=== PATIENT | female | born 1985 | race Hispanic/Latino ===

== ENCOUNTER 2022-08-22 12:40 | Emergency (ER) | payer OTHER ==
[~2022-08-22] VITALS: Ht 162.6 cm; Wt 70.3 kg
[2022-08-22] MEDS ORDERED: KETOROLAC 30MG VIAL (30MG/ML) IM ONE (15:00)
[2022-08-22 15:03] LABS: BASOPHILS % (AUTO) 0.7 % (0.0-5.0); EOSINOPHILS % (AUTO) 0.9 % (0.0-8.0); HEMATOCRIT 36.7 % (36-48); LYMPHOCYTES % (AUTO) 30.8 % (21.0-51.0); MEAN CORPUSCULAR HEMOGLOBIN 25.1 pg (27.0-33.0); MEAN CORPUSCULAR HGB CONC 30.2 g/dL (32.0-36.0); MEAN CORPUSCULAR VOLUME 82.8 fL (79-99); MONOCYTES % (AUTO) 11.4 % (3.0-13.0); PLATELET COUNT (AUTO) 233 K/uL (130-400); RED BLOOD CELL COUNT(AUTO) 4.43 MIL/uL (4.00-5.50); RED CELL DISTRIBUTION WIDTH 17.1 % (11.0-15.5); WHITE BLOOD COUNT (AUTO) 4.3 K/uL (4.8-10.8)
[2022-08-22 15:13] LABS: APPEARANCE,URINE CLEAR (CLEAR); BILIRUBIN,URINE NEGATIVE (NEGATIVE); COLOR,URINE COLORLESS (YELLOW); GLUCOSE, URINE (UA) NEGATIVE (NEGATIVE); KETONES,URINE NEGATIVE (NEGATIVE); LEUKOCYTE ESTERASE ,URINE NEGATIVE Leu/uL (NEGATIVE); NITRATE,URINE NEGATIVE (NEGATIVE); OCCULT BLOOD,URINE NEGATIVE (NEGATIVE); PROTEIN,URINE NEGATIVE (NEGATIVE); UROBILINOGEN,URINE 0.2 mg/dL (0.2-1.0)
[2022-08-22 15:13] LABS: CREATININE 0.8 mg/dL (0.5-1.5); POTASSIUM 3.8 mmol/L (3.5-5.1)
[2022-08-22 15:17] LABS: ALBUMIN 3.6 g/dL (3.5-5.0); TOTAL PROTEIN, SERUM 7.6 g/dL (6.0-8.3)
[2022-08-22 15:18] LABS: HCG,QUALITATIVE URINE NEGATIVE (NEGATIVE)
[2022-08-22 15:19] LABS: RBC,URINE 0-1 /HPF (0-1); SQUAMOUS EPITHELIAL CELL,UR RARE /HPF (0-2); WBC,URINE 0-1 /HPF (0-1)
[2022-08-22] MEDS ORDERED: NAPR500T6 PO (15:50)
[2022-08-22] MEDS ORDERED: SULF1TAB42 PO (15:50)
[2022-08-22 15:57] VITALS: BP 124/72
[2022-08-22] MEDS ORDERED: SULFAMETHOX-TMP DS 800/160 TAB PO SCH (16:00)
== END 2022-08-22 16:00 | disposition home or self-care (01) ==
LOC: EDH 12:40
DX: D36.9 Benign neoplasm, unspecified site (principal); Z90.49 Acquired absence of other specified parts of digestive tract
CPT/HCPCS: 99285; 80053; 85025; 81001; 81025; 36415; 76536; 96372; J1885

== ENCOUNTER 2024-07-13 23:30 | Emergency (ER) | payer OTHER ==
[~2024-07-13] VITALS: Ht 162.6 cm; Wt 80.7 kg
[~2024-07-13 23:30] MED LIST: NAPR-1506 PO; SULF1TAB42 PO
--- NOTE | 2024-07-13 23:48 | ERN ---
ED Note History of Present Illness Stated Complaint: ABD BLOATING, POST SURGICAL Chief Complaint: Post-Op Problem Time Seen by MD: 23:42 Dictation: A 39-year-old female. She comes in the ED. Because some days ago she went to [facility] for a tummy tuck belly procedure surgery to remove some belly fat. Since then she has had some belly pain. And she was draining of the bowl. Went to PCP got night antibiotic shot Allergies: Coded Allergies: No Known Drug Allergies (Unverified Allergy, Unknown, 08/22/22) Home Meds Active Scripts Naproxen (Naproxen) 500 Mg Tablet.dr, 500 MG PO BIDPC, #14 TAB Prov:FITTINGBARBER RADIOTELEGRAPHER 08/22/22 Sulfamethoxazole/Trimethoprim (Bactrim Ds Tablet) 1 Each Tablet, 1 TAB PO BID for 7 Days, #14 TAB 0 Refills Prov:FITTING,BARBER RADIOTELEGRAPHER 08/22/22 Past Medical History Past Medical History: No Pertinent History Surgical History: Appendectomy Review of System Dictation Constitutional: Negative for fever,chills, and weight loss Eyes: Negative for injury, pain,redness, and discharge ENT: Negative for injury,pain or swelling Cardiovascular: Negative for chest pain, palpitations, and edema Respiratory: Negative for shortness of breath, cough, and wheezing, Abdomen/GI: Abdominal pain Back: Negative for injury and pain : Negative for injury, bleeding and discharge MS/Extremity: Negative for injury and deformity Skin: Redness and some swelling. At the suture sites. Neuro: Negative for headache, weakness, numbness, tingling, and seizure Psych: Negative for suicide ideation, homicidal ideation, and hallucinations Initial Vital Sign VS Vital Signs Date Time Temp Pulse Resp B/P (MAP) Pulse Ox O2 Delivery O2 Flow Rate FiO2 07/13/24 23:32 97.3 75 16 106/43 100 Room Air 07/14/24 02:54 0 21 Physical Exam Dictation Patient has no acute distress nontoxic appearing. He has a wheeled in. By the boyfriend. General: awake, alert, NAD Head/Face: Normocephalic, atraumatic Eyes: PERRL, EOMI, vision at baseline ENT: oral cavity clear, TMs clear, no signs of infection Neck: Trachea midline, supple, no nuchal rigidity Cardiovascular: RRR, normal S1/S2, No MRGs, no JVD Respiratory: CTAB, no respiratory distress, No rales or wheezes Abdomen: Soft, non-tender, non-distended, normal bowel sounds, no guarding or rebound. Patient deferred examination was the sutures. Because she said she had the the abdominal binder on this. She did show the bowl. There is no pus or purulent serosanguineous fluid out of this Skin: Warm, dry, normal turgor, no rash MS/Extremity: Pulses equal, no cyanosis, neurovascular intact, FROM Neuro: COAx4, GCS 15, strength 5/5, CN 2-12 intact, normal cerebellar exam, normal gait, Psych: Normal behavior, mood, and affect normal Results (Laboratory/Radiology) Laboratory/Radiology Laboratory Tests Test 07/14/24 00:48 07/14/24 01:31 Urine Color LIGHT-YELLOW (YELLOW) Urine Appearance CLEAR (CLEAR) Urine pH 6.5 (5.0-8.0) Urine Specific [place] 1.017 (1.001-1.031) Urine Protein NEGATIVE mg/dL (NEGATIVE) Urine Glucose (UA) NEGATIVE mg/dL (NEGATIVE) Urine Ketones NEGATIVE mg/dL (NEGATIVE) Urine Occult Blood NEGATIVE (NEGATIVE) Urine Nitrate NEGATIVE (NEGATIVE) Urine Bilirubin NEGATIVE mg/dL (NEGATIVE) Urine Urobilinogen 0.2 mg/dL (0.2-1.0) Urine Leukocyte Esterase NEGATIVE Alisha/uL Urine HCG, Qualitative NEGATIVE (NEGATIVE) White Blood Count 8.5 K/uL (4.8-10.8) Red Blood Count 3.57 MIL/uL (4.00-5.50) L Hemoglobin 10.3 g/dL (12.0-16.0) L Hematocrit 31.9 % (36-48) L Mean Corpuscular Volume 89.4 fL (79-99) Mean Corpuscular Hemoglobin 28.9 pg (27.0-33.0) Mean Corpuscular Hemoglobin Concent 32.3 g/dL (32.0-36.0) Red Cell Distribution Width 15.4 % (11.0-15.5) Platelet Count 363 K/uL (130-400) Mean Platelet Volume 10.6 fL (7.5-10.5) H Immature Granulocyte % (Auto) 0.7 % (0-1) Neutrophils (%) (Auto) 70.4 % (40.0-77.0) Lymphocytes (%) (Auto) 17.9 % (21.0-51.0) L Monocytes (%) (Auto) 8.5 % (3.0-13.0) Eosinophils (%) (Auto) 1.9 % (0.0-8.0) Basophils (%) (Auto) 0.6 % (0.0-5.0) Neutrophils # (Auto) 6.0 K/uL (1.8-7.7) Lymphocytes # (Auto) 1.5 K/uL (1.0-4.8) Monocytes # (Auto) 0.7 K/uL (0.1-1.0) Eosinophils # (Auto) 0.16 K/uL (0.00-0.70) Basophils # (Auto) 0.05 K/uL (0.00-0.20) Absolute Immature Granulocyte (auto 0.06 K/uL (0-1) Nucleated Red Blood Cells 0.0 % (0.0-0.19) Sodium Level 142 mmol/L (136-145) Potassium Level 3.9 mmol/L (3.5-5.1) Chloride Level 104 mmol/L (101-111) Carbon Dioxide Level 32 mmol/L (21-32) Blood Urea Nitrogen 17 mg/dL (7-18) Creatinine 0.9 mg/dL (0.5-1.0) Glomerular Filtration Rate Calc 83 mL/min (>90) Random Glucose 93 mg/dL (70-105) Lactic Acid Level 1.0 mmol/L (0.8-2.5) Total Calcium 8.8 mg/dL (8.5-10.1) Troponin I High Sensitivity < 4 ng/L (4-50) L B-Type Natriuretic Peptide 25 pg/mL (0-100) ED Course ED Course Orders Procedure Category Date Status Time 12 Lead Ekg Tracing- EKG 07/13/24 Logged Technical 23:35 Chest 1vw RAD 07/13/24 Taken 23:35 Troponin I High LAB 07/13/24 Complete Sensitivity 23:35 Cbc With Differential LAB 07/13/24 Complete 23:35 Basic Metabolic Panel LAB 07/13/24 Complete 23:35 B-Type Natriuretic LAB 07/13/24 Complete Peptide 23:35 Lactic Acid LAB 07/13/24 Complete 23:35 ,Urine Test LAB 07/13/24 Complete 23:35 Urinalysis Profile LAB 07/13/24 Complete 23:35 Ct Abdomen/Pelvis CT 07/13/24 Taken W/Contrast 23:50 Meperidine Hcl/Pf PHA 07/14/24 Complete (Demerol-Pf) 00:00 Ondansetron 4mg Inj PHA 07/14/24 Complete (Zofran 4mg Inj) 00:00 Iohexol (Omnipaque) PHA 07/14/24 Complete 00:37 0.9%Nacl 1000ml (Ns PHA 07/14/24 In Process 1000ml) 04:00 Current Medications Medications (Trade) Dose Ordered Sig/Anibal Route PRN Reason Start Time Stop Time Status Last Admin Dose Admin Iohexol (Omnipaque) 35,000 mg STK-MED ONCE IV 07/14/24 00:37 07/14/24 00:37 DC Meperidine HCl (Demerol-Pf) 25 mg ONCE ONCE IVP 07/14/24 00:00 07/14/24 00:01 DC 07/14/24 00:00 Ondansetron HCl (zoFRAN 4MG INJ) 4 mg ONCE ONCE IVP 07/14/24 00:00 07/14/24 00:01 DC 07/14/24 00:00 Sodium Chloride 1,000 ml @ 250 mls/hr Q4H IV 07/14/24 04:00 08/13/24 03:59 07/14/24 03:34 Vital Signs Date Time Temp Pulse Resp B/P (MAP) Pulse Ox O2 Delivery O2 Flow Rate FiO2 07/14/24 04:00 97.0 64 19 90/48 100 Nasal Cannula* 3 32 07/14/24 03:53 97.0 66 19 93/49 100 Nasal Cannula* 3 32 07/14/24 03:28 97.0 65 19 99/60 100 Nasal Cannula* 2 28 07/14/24 02:54 97.0 66 19 110/59 100 Room Air* 0 21 07/13/24 23:32 97.3 75 16 106/43 100 Room Air Medical Decision Making MDM Says she likely needs some stronger antibiotics. I considered intra-abdominal abscess. Do do consider cellulitis. Failed outpatient antibiotics said we can do some labs tests imaging. May need to be admitted in the hospital for IV antibiotics. Updated patient multiple times over this visit. I said we are still waiting on the lab the CT scan abdomen. She said it is fine she will like to wait.. Patient's blood pressure was kind of soft. Nurse asked if give some fluids I said this fine also 200 continue to reassess. She patient does have very good mentation. Said normally her baseline blood pressure is around 100. She says she feels better after the pain medications. But again during this whole time she has very good mentation. I told her we are waiting on the CT scan of the impression read from the radiologist. But I told her that my own read I do not see an abscess no other questions concerns continue to monitor. DX & DISP Disposition: Discharge Departure Impression: Primary Impression: Cellulitis Condition: Stable Scripts Doxycycline Hyclate (Doxycycline Hyclate) 20 Mg Tablet 1 TAB PO BID for 10 Days, #60 TAB 0 Refills Prov: CELI SHEPHERD MD 07/14/24 Ciprofloxacin HCl (Cipro) 500 Mg Tablet 1 TAB PO BID for 10 Days, #20 TAB 0 Refills Prov: CELI SHEPHERD MD 07/14/24 Referrals: NONE (PCP) CELI SHEPHERD MD Jul 13, 2024 23:48
[2024-07-14] MEDS: ondanSETRON 4MG INJ IVP ONE
[2024-07-14] MEDS: MEPERIDINE-PF 25 MG/ML SYG IVP ONE
[2024-07-14] MEDS ORDERED: IOHEXOL 350 MG/ML 100ML INFUS..BTL IV ONE (00:37)
[2024-07-14 01:01] LABS: APPEARANCE,URINE CLEAR (CLEAR); BILIRUBIN,URINE NEGATIVE (NEGATIVE); COLOR,URINE LIGHT-YELLOW (YELLOW); GLUCOSE, URINE (UA) NEGATIVE (NEGATIVE); KETONES,URINE NEGATIVE (NEGATIVE); LEUKOCYTE ESTERASE ,URINE NEGATIVE Leu/uL (NEGATIVE); NITRATE,URINE NEGATIVE (NEGATIVE); OCCULT BLOOD,URINE NEGATIVE (NEGATIVE); PH,URINE 6.5 (5.0-8.0); PROTEIN,URINE NEGATIVE (NEGATIVE); UROBILINOGEN,URINE 0.2 mg/dL (0.2-1.0)
[2024-07-14 01:06] LABS: ADD UA MICROSCOPIC NO
[2024-07-14 01:07] LABS: HCG,QUALITATIVE URINE NEGATIVE (NEGATIVE)
[2024-07-14 01:37] LABS: BASOPHILS # (AUTO) 0.05 K/uL (0.00-0.20); BASOPHILS % (AUTO) 0.6 % (0.0-5.0); EOSINOPHILS # (AUTO) 0.16 K/uL (0.00-0.70); EOSINOPHILS % (AUTO) 1.9 % (0.0-8.0); HEMATOCRIT 31.9 % (36-48); IMMATURE GRANULOCYTE ABSOLUTE 0.06 K/uL (0-1); LYMPHOCYTES # (AUTO) 1.5 K/uL (1.0-4.8); LYMPHOCYTES % (AUTO) 17.9 % (21.0-51.0); MEAN CORPUSCULAR HEMOGLOBIN 28.9 pg (27.0-33.0); MEAN CORPUSCULAR HGB CONC 32.3 g/dL (32.0-36.0); MEAN CORPUSCULAR VOLUME 89.4 fL (79-99); MONOCYTES # (AUTO) 0.7 K/uL (0.1-1.0); MONOCYTES % (AUTO) 8.5 % (3.0-13.0); NEUTROPHILS % (AUTO) 70.4 % (40.0-77.0); PLATELET COUNT (AUTO) 363 K/uL (130-400); RED BLOOD CELL COUNT(AUTO) 3.57 MIL/uL (4.00-5.50); RED CELL DISTRIBUTION WIDTH 15.4 % (11.0-15.5); WHITE BLOOD COUNT (AUTO) 8.5 K/uL (4.8-10.8)
[2024-07-14 01:52] LABS: CREATININE 0.9 mg/dL (0.5-1.0); POTASSIUM 3.9 mmol/L (3.5-5.1)
[2024-07-14 02:03] LABS: B-TYPE NATRIURETIC PEPTIDE 25 pg/mL (0-100)
--- NOTE | 2024-07-14 02:53 | NUR ---
PT PLACED IN ROOM, TOOK OVER CARE AT THIS TIME
--- NOTE | 2024-07-14 02:57 | NUR ---
TRIAGE EDIT TO CORRECT SPELLING
--- NOTE | 2024-07-14 02:58 | NUR ---
PT ORIENTED TO ROOM, CALL LIGHT WITHIN REACH
--- NOTE | 2024-07-14 03:16 | NUR ---
PILLOW PLACED UNDER BILATRAL FEET. SOCKS APPLIED
--- NOTE | 2024-07-14 03:21 | NUR ---
MEDICATION USAGE AND NEED EXPLAINED TO PT, WELL SIDE EFFECTS. NAME, AND ALLERGIES VERIFIED. PT UNDERSTOOD TEACHING VIA VERBAL TEACHBACK
--- NOTE | 2024-07-14 03:28 | NUR ---
20 G IV TO RT AC STARTED BY RADIOLOGY
--- NOTE | 2024-07-14 03:32 | NUR ---
INFORMED DR SHEPHERD OF BP, ORDERS RECEIVED
[2024-07-14] MEDS: 0.9%NACL 1000ML 1,000 ML IV SCH (03:34)
--- NOTE | 2024-07-14 03:55 | NUR ---
PER PT. NORMAL BP 104/??
[2024-07-14] MEDS ORDERED: DOXY20TA20 PO (05:33)
[2024-07-14] MEDS ORDERED: CIPR-278 PO (05:33)
--- NOTE | 2024-07-14 06:28 | NUR ---
PT DENIES PAIN, A X O X 4. PRESSURES CONTINUE TO BE LOW. FLUIDS CONTINUE TO INFUSE. DISCHARGE HELD UNTIL PT PRESSURES INCREASE
--- NOTE | 2024-07-14 07:09 | NUR ---
REPORT TO ABI SMALL
[2024-07-14] MEDS: 0.9%NACL 1000ML 1,000 ML IV ONE (07:34)
--- NOTE | 2024-07-14 08:18 | HMCIMG ---
CT ABDOMEN/PELVIS W/CONTRAST REASON: Abdominal Pain COMPARISON: None. TECHNIQUE: Images are obtained from lung bases to the symphysis pubis following IV contrast, 100 cc Isovue 350. FINDINGS: Lung bases are clear. There are no focal liver lesions. There are normal-appearing kidneys.. Spleen and pancreas appear unremarkable. The gallbladder appears normal as well. Bowel loops appear unremarkable. This includes normal appearance of the appendix There is no evidence of free fluid or intraperitoneal air. There are no focal fluid collections. Aorta and retroperitoneum appear normal as do pelvic soft tissue structures. There is edema in the anterior abdominal wall consistent with the history of recent abdominal surgery. There are no focal fluid collections to suggest abscess. There is no evidence of gas forming infection. Osseous structures appear unremarkable. IMPRESSION: 1. Postop changes in the anterior abdominal wall without evidence of abscess or other complication 2. Otherwise unremarkable postcontrast CT abdomen and pelvis. CT was performed with one or more following dose reduction techniques: automated exposure control, adjustment of the mA and kv according to patient's size, or use of a iterative reconstruction technique.
--- NOTE | 2024-07-14 08:35 | HMCIMG ---
CHEST 1VW REASON: SOB COMPARISON: None. FINDINGS: Single view of the chest was obtained. Lungs are clear. Heart size is normal. There is no pulmonary vascular congestion. Mediastinum and bony thorax appear unremarkable. IMPRESSION: 1. Normal single view chest x-ray.
[2024-07-14 08:40] VITALS: BP 108/56; PULSE 67; RESP 16; TEMP 97.5; O2SAT 98
--- NOTE | 2024-07-15 10:31 | EKG ---
[facility] Test Date: 2024-07-13 Test Time: 23:48:59 Pat Name: DAQUAN WORKMAN Department: ED Room: Gender: F Engrosser: [id number] : 1985 Requested By: CELI SHEPHERD Order Number: [id number] Reading MD: Jean Pierre Arceo Measurements Intervals [place] Rate: 73 P: 54 MI: 144 QRS: 20 QRSD: 80 T: 37 QT: 390 QTc: 431 Interpretive Statements Sinus rhythm No previous ECG available for comparison Electronically Signed On 07-16-2024 17:22:31 LIFE MANAGER by Jean Pierre Arceo Please click the below link to view image of tracing.
== END 2024-07-14 08:49 | disposition home or self-care (01) ==
LOC: EDH 23:30
DX: L03.311 Cellulitis of abdominal wall (principal); Z90.49 Acquired absence of other specified parts of digestive tract
CPT/HCPCS: 99285; 74177; 71045; 84484; 80048; 83880; 85025; 83605; 81003; 81025; 36415; 93005; 96374; 96361; 96375; J7030; J2405; J2175; Q9967